=== PATIENT | male | born 1995 | race Caucasian/White ===

== ENCOUNTER 2017-09-25 14:16 | Emergency (ER) | payer OTHER ==
[2017-09-25 14:43] VITALS: BP 121/79
--- NOTE | 2017-09-25 14:59 | UC ---
Minor Trauma HPI - HPI Summary HPI Summary: Patient fell and hit his left anterior lateral ribs on the bathtub 2 days ago. Complains of pain with cough and deep breath. Does not feel short of breath at rest - History of Current Complaint Chief Complaint: UCUpperExtremity Stated Complaint: RIB INJURY Time Seen by Provider: 09/25/17 14:52 Hx Obtained From: Patient Onset/Duration: Sudden Onset, Lasting Days - 2, Still Present Onset Of Pain: Immediate Severity Initially: Mild Severity Currently: Mild Pain Intensity: 3 Pain Scale Used: 0-10 Numeric Mechanism Of Injury: Direct Blow, Fall From A Standing Position Aggravating Factor(s): Coughing, Deep Breaths, Movement Alleviating Factor(s): Nothing - Allergies/Home Medications Allergies/Adverse Reactions: Allergies Allergy/AdvReac Type Severity Reaction Status Date / Time No Known Allergies Allergy Verified 09/25/17 14:43 Home Medications: Home Medications Albuterol HFA INHALER* [Ventolin HFA Inhaler*] 1 puff INH Q4H PRN 09/25/17 [ History Confirmed 09/25/17] Budesonide/Formote 160/4.5(NF) [Symbicort 160/4.5 (NF)] 2 puff INH BID 09/25/17 [History Confirmed 09/25/17] PMH/Surg Hx/FS Hx/Imm Hx Respiratory History: Other Other Respiratory History: 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 - Family History Known Family History: Positive: None - Social History Occupation: Employed Full-time Lives: With Family Alcohol Use: Occasionally Substance Use Type: None Smoking Status (MU): Never Smoked Tobacco Review of Systems Constitutional: Negative Skin: Negative Eyes: Negative ENT: Negative Respiratory: Negative Cardiovascular: Negative Gastrointestinal: Negative Genitourinary: Negative Motor: Negative Neurovascular: Negative Musculoskeletal: Arthralgia - Left anterior lateral rib pain Neurological: Negative Psychological: Negative Is Patient Immunocompromised?: No All Other Systems Reviewed And Are Negative: Yes Physical Exam Triage Information Reviewed: Yes Appearance: Well-Appearing, No Pain Distress, Well-Nourished Vital Signs: Initial Vital Signs Temp 98.6 F 09/25/17 14:37 Pulse 91 09/25/17 14:37 Resp 18 09/25/17 14:37 BP 121/79 09/25/17 14:37 Pulse Ox 100 09/25/17 14:37 Vital Signs Reviewed: Yes Eye Exam: Normal Eyes: Positive: Conjunctiva Clear ENT Exam: Normal ENT: Positive: Normal ENT inspection, Hearing grossly normal. Negative: Nasal congestion, Trismus, Muffled voice, Hoarse voice, Sinus tenderness Dental Exam: Normal Neck exam: Normal Neck: Positive: Supple, Nontender Respiratory Exam: Other Respiratory: Positive: Lungs clear, Normal breath sounds, No respiratory distress, No accessory muscle use, Other: - Left anterior chest wall tender to palpation Cardiovascular Exam: Normal Cardiovascular: Positive: RRR, No Murmur, Pulses Normal, Brisk Capillary Refill Musculoskeletal Exam: Normal Musculoskeletal: Positive: Strength Intact, ROM Intact, No Edema Neurological Exam: Normal Neurological: Positive: Alert, Muscle Tone Normal Psychological Exam: Normal Skin Exam: Normal Diagnostics - Radiology No standard instances Xray Interpretation: Positive (See Comments) - Slightly displaced left sixth rib fracture Radiology Interpretation Completed By: ED Physician, Radiologist Minor Trauma Course/Dx - Course Course Of Treatment: Ice incentive spirometry Tylenol ibuprofen for pain direct pressure with a pillow will be helpful when coughing - Differential Dx/Diagnosis Provider Diagnoses: Slightly displaced left anterior sixth rib fx Discharge - Sign-Out/Discharge Documenting (check all that apply): Discharge - Discharge Plan Condition: Stable Disposition: HOME Patient Education Materials: Rib Fracture (ED), R.I.C.E. Treatment (ED) Referrals: Xin Fernandez MD [Primary Care Provider] - If Needed - Billing Disposition and Condition Condition: STABLE Disposition: HOME
--- NOTE | 2017-09-25 15:31 | RAD ---
Indication: Left rib pain. 3 views of left ribs are reviewed as well as 2 views of the chest. There appears to be a minimally displaced fracture of the left sixth rib. No pneumothorax is noted. IMPRESSION: There is suggestion of a nondisplaced fracture of the left sixth rib anterolaterally.
== END 2017-09-25 15:44 | disposition home or self-care (01) ==
LOC: UCEAST 14:16
DX: S29.9XXA Unspecified injury of thorax, initial encounter (principal); W22.09XA Striking against other stationary object, initial encounter; Y93.E8 Activity, other personal hygiene; Y92.002 Bathroom of unspecified non-institutional (private) residence as the place of occurrence of the external cause
CPT/HCPCS: 99211; G0463